=== PATIENT | female | born 1975 | race Caucasian/White ===

== ENCOUNTER 2019-05-20 09:21 | Emergency (ER) | payer OTHER ==
[~2019-05-20] VITALS: Ht 167.6 cm; Wt 53.5 kg
--- NOTE | 2019-05-20 09:30 | NUR ---
pt ambulating. A&Ox4. c/o RLQ abd pain. radiating to lower back x24 hours. sudden onset per pt. denies any NVD. denies any distress. no neural deficits noted. speech clear and able to follow commands. pt breathing even and unlabored. denies any fever or chills no cardiovascular distress noted. pulses palpable, cap refill <3 sec. fall precautions observed. bed low, siderails up x2, call light within reach
--- NOTE | 2019-05-20 09:34 | NUR ---
ERMD at bedside for MSE
[2019-05-20 09:38] LABS: *BILIRUBIN,URIN NEGATIVE (NEGATIVE); *BLOOD, URINE NEGATIVE (NEGATIVE); *CLARITY,URINE CLEAR (CLEAR); *COLOR,URINE YELLOW (YELLOW); *KETONES,URINE NEGATIVE (NEGATIVE); *UROBILINOGEN,URINE 0.2 E.U./dl (NORMAL); LEUKOCYTE ESTERASE ,URINE NEGATIVE (NEGATIVE); NITRITE, URINE NEGATIVE (NEGATIVE); PH,URINE 5.5 (5.0-8.0); UGLUCOSE NEGATIVE (NEGATIVE)
[2019-05-20 09:42] LABS: *URINE HCG, QUAL NEGATIVE (NEGATIVE)
[2019-05-20] MEDS ORDERED: HYDROMORPHONE 1 MG/1 ML DISP.SYRIN IV ONE (09:45)
[2019-05-20] MEDS ORDERED: IV NORMAL SALINE 1000 ML BAG IV ONE (09:45)
[2019-05-20] MEDS ORDERED: ONDANSETRON 4 MG/2 ML VIAL IV ONE (09:45)
[2019-05-20 09:50] LABS: BASOPHILS % (AUTO) 0.8 % (0.0-2.0); EOSINOPHILS % (AUTO) 0.8 % (0.0-7.0); HEMATOCRIT 42.9 % (31.2-41.9); HEMOGLOBIN 14.4 g/dL (10.9-14.3); LYMPHOCYTES # (AUTO) 1.4 K/uL (20.0-40.0); LYMPHOCYTES % (AUTO) 39.7 % (20.5-51.5); MEAN CORPUSCULAR HEMOGLOBIN 32.7 uug (24.7-32.8); MEAN CORPUSCULAR HGB CONC 34 g/dL (32.3-35.6); MEAN CORPUSCULAR VOLUME 97.6 fL (75.5-95.3); MONOCYTES # (AUTO) 0.3 K/uL (2.0-10.0); MONOCYTES % (AUTO) 9.1 % (0.0-11.0); NEUTROPHILS # (AUTO) 1.7 K/uL (1.8-8.9); NEUTROPHILS % (AUTO) 49.6 % (38.5-71.5); PLATELET COUNT (AUTO) 228 K/uL (179-408); WHITE BLOOD COUNT (AUTO) 3.4 K/uL (3.8-11.8)
[2019-05-20] MEDS ORDERED: ONDANSETRON 4 MG/2 ML VIAL ONE (09:58)
[2019-05-20] MEDS ORDERED: HYDROMORPHONE 1 MG/1 ML DISP.SYRIN ONE (09:58)
[2019-05-20 09:59] LABS: CREATININE 1.1 mg/dL (0.6-1.3); POTASSIUM 4.6 mmol/L (3.5-5.1)
[2019-05-20 10:05] LABS: BILIRUBIN,DIRECT 0.2 mg/dL (0.0-0.2); BILIRUBIN,TOTAL 0.6 mg/dL (0.2-1.0); TOTAL PROTEIN, SERUM 8.1 g/dL (6.4-8.2)
--- NOTE | 2019-05-20 10:07 | NUR ---
pt taken to CT scan
--- NOTE | 2019-05-20 10:30 | NUR ---
pt back from CT scan
--- NOTE | 2019-05-20 10:35 | NUR ---
PATIENT STATES PAIN HAS DIMINSHED. DENIES NAUSEA OR DIZZINESS.
--- NOTE | 2019-05-20 11:10 | NUR ---
IV removed. Catheter intact and site benign. Pressure and 4x4 gauze applied to site. No bleeding noted.
--- NOTE | 2019-05-20 11:10 | NUR ---
DC, RX (NORCO AND DILAUDID PRECAUTIONS) AND FOLLOW UP INSTRUCTIONS GIVEN AND EXPLAINED TO PATIENT AND WHO STATE THEY UNDERSTAND ALL INSTRUCTIONS. TO DRIVE. PATIENT AMBULATING IN STEADY GAIT.
[2019-05-20 11:13] VITALS: BP 122/77
== END 2019-05-20 11:08 | disposition home or self-care (01) ==
LOC: ER 09:21
DX: N20.0 Calculus of kidney (principal)
CPT/HCPCS: 36415; 74176; 80048; 80076; 81001; 83690; 84484; 84703; 85025; 93005; 96374; 96375; 99284; J1170; J2405; 70030-TC; A4663; J7030